=== PATIENT | male | born 1950 | race Caucasian/White ===

== ENCOUNTER 2020-05-20 12:18 | Observation (INO) | payer MEDICARE ==
--- NOTE | 2020-05-20 14:16 | EDM.PDOC ---
ED HPI GENERAL MEDICAL PROBLEM - General Chief Complaint: Lower Extremity Injury/Pain Stated Complaint: POSSIBLE INFECTION Time Seen by Provider: 05/20/20 13:23 Source of Information: Reports: Patient, Family, Old Records, RN Notes Reviewed History Limitations: Reports: No Limitations - History of Present Illness INITIAL COMMENTS - FREE TEXT/NARRATIVE: 7-year-old gentleman presents emergency department today concerned about an infection, he recently had been doing some work on his knees developed a bursa over the right knee head followed up with urgent care did some basic blood work at that time was unremarkable did see orthopedics fluid was drained culture performed culture demonstrates a staph aureus sensitivities will be completed tomorrow morning, was given 2 g Rocephin IM and currently on Augmentin - Related Data Allergies Allergy/AdvReac Type Severity Reaction Status Date / Time acetaminophen Allergy Severe Swelling Verified 05/20/20 13:46 Home Meds: Home Meds Amoxicillin/Potassium Clav [Augmentin 875-125 Tablet] 1 each PO BID 05/19/20 [History] FLUoxetine HCl [Prozac] 20 mg PO DAILY 05/19/20 [History] Naproxen Sodium [Aleve] 220 mg PO DAILY 05/19/20 [History] atorvaSTATin Calcium [Atorvastatin Calcium] 20 mg PO DAILY 05/19/20 [History] metFORMIN HCl [Metformin HCl] 2,000 mg PO DAILY 05/19/20 [History] traMADol [Ultram] 50 mg PO Q4H PRN #24 tab 05/19/20 [Rx] Past Medical History HEENT History: Reports: Impaired Vision Other Respiratory History: history of pleural effusion with chest tube. Musculoskeletal History: Reports: Other (See Below) Other Musculoskeletal History: right knee pain and swelling Other Neuro History: had a brain surgery in 1986 Endocrine/Metabolic History: Reports: Diabetes, Type II - Infectious Disease History Infectious Disease History: Reports: Chicken Pox - Past Surgical History HEENT Surgical History: Reports: Tonsillectomy Musculoskeletal Surgical History: Reports: Hip Replacement Other Musculoskeletal Surgeries/Procedures:: left total hip Social & Family History - Tobacco Use Smoking Status *Q: Former Smoker Years of Tobacco use: 15 Packs/Tins Daily: 1 Used Tobacco, but Quit: Yes Month/Year Tobacco Last Used: 1984 - Caffeine Use Caffeine Use: Reports: Coffee - Alcohol Use Days Per Week of Alcohol Use: 4 Number of Drinks Per Day: 3 Total Drinks Per Week: 12 Date of Last Drink: 05/19/20 Time of Last Drink: 21:00 - Recreational Drug Use Recreational Drug Use: No Review of Systems - Review of Systems Review Of Systems: See Below Constitutional: Denies: Fever Respiratory: Reports: No Symptoms Cardiovascular: Reports: No Symptoms Musculoskeletal: Reports: No Symptoms Skin: Reports: Pallor, Rash, Erythema ED EXAM, GENERAL - Physical Exam Exam: See Below Free Text/Narrative:: Examination of the right knee he does have an open wound inferior patella which is slightly draining there is erythema around the knee however this is with inside the margins of the original marking with the pen. He does have some edema in the knee that has spread down into the calf and foot as well as slightly up into the leg it is warm to the touch no appreciable tenderness to the touch Exam Limited By: No Limitations General Appearance: Alert, WD/WN, No Apparent Distress Course - Vital Signs Last Recorded V/S: Last Vital Signs Temp 93.4 F L 05/20/20 14:09 Pulse 68 05/20/20 14:09 Resp 14 05/20/20 14:09 BP 147/70 H 05/20/20 14:09 Pulse Ox 98 05/20/20 14:09 - Orders/Labs/Meds Labs: Laboratory Tests 05/20/20 05/20/20 05/20/20 Range/Units 14:21 14:21 14:21 WBC 10.1 (4.5-11.0) K/uL RBC 4.25 L (4.30-5.90) M/uL Hgb 12.7 (12.0-15.0) g/dL Hct 39.6 L (40.0-54.0) % MCV 93 (80-98) fL MCH 30 (27-31) pg MCHC 32 (32-36) % Plt Count 216 (150-400) K/uL Neut % (Auto) 71 H (36-66) % Lymph % (Auto) 14 L (24-44) % [place] % (Auto) 13 H (2-6) % Eos % (Auto) 2 (2-4) % Baso % (Auto) 0 (0-1) % ESR 43 H (0-20) mm/hr Sodium (140-148) mmol/L Potassium (3.6-5.2) mmol/L Chloride (100-108) mmol/L Carbon Dioxide (21-32) mmol/L Anion Gap (5.0-14.0) mmol/L BUN (7-18) mg/dL Creatinine (0.8-1.3) mg/dL Est Cr Clr Drug Dosing mL/min Estimated GFR (MDRD) (>60) Glucose (74-106) mg/dL Lactic Acid 2.8 H (0.4-2.0) mmol/L Calcium (8.5-10.1) mg/dL C-Reactive Protein 13.94 H (0.0-0.3) mg/dL 05/20/20 Range/Units 14:21 WBC (4.5-11.0) K/uL RBC (4.30-5.90) M/uL Hgb (12.0-15.0) g/dL Hct (40.0-54.0) % MCV (80-98) fL MCH (27-31) pg MCHC (32-36) % Plt Count (150-400) K/uL Neut % (Auto) (36-66) % Lymph % (Auto) (24-44) % [place] % (Auto) (2-6) % Eos % (Auto) (2-4) % Baso % (Auto) (0-1) % ESR (0-20) mm/hr Sodium 137 L (140-148) mmol/L Potassium 4.4 (3.6-5.2) mmol/L Chloride 100 (100-108) mmol/L Carbon Dioxide 28 (21-32) mmol/L Anion Gap 13.4 (5.0-14.0) mmol/L BUN 12 (7-18) mg/dL Creatinine 1.1 (0.8-1.3) mg/dL Est Cr Clr Drug Dosing 64.52 mL/min Estimated GFR (MDRD) > 60 (>60) Glucose 172 H (74-106) mg/dL Lactic Acid (0.4-2.0) mmol/L Calcium 9.0 (8.5-10.1) mg/dL C-Reactive Protein (0.0-0.3) mg/dL Departure - Departure Time of Disposition: 16:34 Disposition: Admitted As Inpatient 66 Condition: Fair Clinical Impression: Infection of knee - Discharge Information Referrals: PCP,None [Primary Care Provider] - Forms: ED Department Discharge Sepsis Event Note (ED) - Evaluation Sepsis Screening Result: No Definite Risk - Focused Exam Vital Signs: Vital Signs Temp Pulse Resp BP Pulse Ox 05/20/20 14:09 93.4 F L 68 14 147/70 H 98 05/20/20 13:28 93.3 F L 68 14 147/70 H 98 - Assessment/Plan Plan: Assessment Acuity = acute Site and laterality = cellulitis versus septic arthritis right knee Etiology = staph aureus Manifestations = erythema Location of injury = Home Lab values = sed rate elevated at 40 lactic acid elevated 2.8 CRP elevated 13.4 this is up from 0.82 days ago Plan Call discussed case with Dr. Kimball orthopedic surgeon [facility] at 1610 recommended IV antibiotics for coverage of MRSA with observation for 24 hours if improvement continue with medical management however if no improvement recommend incision and drainage by orthopedics. I did discuss options with the patient they would like to stay in [place] rather than transfer to [address]. I called discussed case with hospitalist on-call at 1430 he kindly agreed to come and evaluate the patient emergency department for admission This note was dictated using hiyalife voice recognition software please call with any questions on syntax or grammar.
--- NOTE | 2020-05-20 17:48 | PCM.HP.2 ---
H&P History of Present Illness - General Date of Service: 05/20/20 Admit Problem/Dx: Admission Diagnosis/Problem Admission Diagnosis/Problem Bursitis of knee Source of Information: Patient, Provider History Limitations: Reports: No Limitations - History of Present Illness Initial Comments - Free Text/Narative: CC: my knee is swollen HPI: Todd presents to the emergency room today with persistent right knee pain and increasing swelling. He reports that he has been crawling around on his knees doing trim work and developed a small abrasion on the right knee. He subsequently developed some achy pain and increasing swelling. This pain and swelling have progressed over the past week. Pain is currently achy and mild to moderate in nature. Leg feels better when it is elevated. Hurts when he is walking around. He has been using Aleve and tramadol. These medications do help some. Pain is getting worse. Swelling is getting worse and has extended to involve all of his lower leg. He was seen by orthopedics yesterday and some fluid was drained with concern for potentially infected bursitis. No organisms were seen on the Gram stain. He was started on Augmentin. Things are getting worse since that time. He did have one fever about 2-1/2 days ago but none since. No cough, shortness of breath, abdominal pain or diarrhea. Work-up in the emergency room revealed a white blood cell count at the upper limits of normal. CRP has increased since it was checked the other day. He has obvious swelling and warmth of the knee which extends proximally onto the thigh and distally all the way down to the foot. Most of the warmth and redness is centered around the anterior knee. - Related Data Allergies/Adverse Reactions: Allergies Allergy/AdvReac Type Severity Reaction Status Date / Time acetaminophen Allergy Severe Swelling Verified 05/20/20 13:46 Home Medications: Home Meds Amoxicillin/Potassium Clav [Augmentin 875-125 Tablet] 1 each PO BID 05/19/20 [History] FLUoxetine HCl [Prozac] 20 mg PO DAILY 05/19/20 [History] Naproxen Sodium [Aleve] 220 mg PO DAILY 05/19/20 [History] atorvaSTATin Calcium [Atorvastatin Calcium] 20 mg PO DAILY 05/19/20 [History] metFORMIN HCl [Metformin HCl] 2,000 mg PO DAILY 05/19/20 [History] traMADol [Ultram] 50 mg PO Q4H PRN #24 tab 05/19/20 [Rx] Past Medical History HEENT History: Reports: Impaired Vision Other Respiratory History: history of pleural effusion with chest tube. Musculoskeletal History: Reports: Other (See Below) Other Musculoskeletal History: right knee pain and swelling Other Neuro History: had a brain surgery in 1986 Endocrine/Metabolic History: Reports: Diabetes, Type II - Infectious Disease History Infectious Disease History: Reports: Chicken Pox - Past Surgical History HEENT Surgical History: Reports: Tonsillectomy Musculoskeletal Surgical History: Reports: Hip Replacement Other Musculoskeletal Surgeries/Procedures:: left total hip Social & Family History - Family History Endocrine/Metabolic: Reports: Diabetes, type II - Tobacco Use Smoking Status *Q: Former Smoker Years of Tobacco use: 15 Packs/Tins Daily: 1 Used Tobacco, but Quit: Yes Month/Year Tobacco Last Used: 1984 - Caffeine Use Caffeine Use: Reports: Coffee - Alcohol Use Days Per Week of Alcohol Use: 4 Number of Drinks Per Day: 3 Total Drinks Per Week: 12 Date of Last Drink: 05/19/20 Time of Last Drink: 21:00 - Recreational Drug Use Recreational Drug Use: No H&P Review of Systems - Review of Systems: Review Of Systems: See Below Free Text/Narrative: A complete 12 point review of systems was obtained. Pertinent positives and n egatives are noted in the history of present illness. All other systems were reviewed and were negative except as noted. Exam - Exam Exam: See Below - Vital Signs Vital Signs: Last Vital Signs Temp 34.1 C L 05/20/20 14:09 Pulse 68 05/20/20 14:09 Resp 14 05/20/20 14:09 BP 147/70 H 05/20/20 14:09 Pulse Ox 98 05/20/20 14:09 Weight: 89.4 kg - Exam Quality Assessment: No: Supplemental Oxygen General: Alert, Oriented, Cooperative. No: Mild Distress HEENT: Conjunctiva Clear, Mucosa Moist & [place] Neck: Supple, Trachea Midline Lungs: Clear to Auscultation, Normal Respiratory Effort Cardiovascular: Regular Rate, Regular Rhythm GI/Abdominal Exam: Soft, No Distention Extremities: Pedal Edema (Right leg from the foot all the way up to above the knee), Joint Swelling (Right knee), Increased Warmth (Right knee) Skin: Warm, Dry, Rash (Erythema over the anterior right knee extending proximally a couple of inches and distally a couple of inches) Neuro Extensive - Mental Status: Alert, Oriented x3, Nl Response to Commands Neuro Extensive - Motor, Sensory, Reflexes: No: Dysarthria, Abnormal Motor Psychiatric: Alert, Normal Affect - Patient Data Lab Results Last 24 hrs: Laboratory Results - last 24 hr 05/20/20 05/20/20 05/20/20 Range/Units 14:21 14:21 14:21 WBC 10.1 (4.5-11.0) K/uL RBC 4.25 L (4.30-5.90) M/uL Hgb 12.7 (12.0-15.0) g/dL Hct 39.6 L (40.0-54.0) % MCV 93 (80-98) fL MCH 30 (27-31) pg MCHC 32 (32-36) % Plt Count 216 (150-400) K/uL Neut % (Auto) 71 H (36-66) % Lymph % (Auto) 14 L (24-44) % [place] % (Auto) 13 H (2-6) % Eos % (Auto) 2 (2-4) % Baso % (Auto) 0 (0-1) % ESR 43 H (0-20) mm/hr Sodium (140-148) mmol/L Potassium (3.6-5.2) mmol/L Chloride (100-108) mmol/L Carbon Dioxide (21-32) mmol/L Anion Gap (5.0-14.0) mmol/L BUN (7-18) mg/dL Creatinine (0.8-1.3) mg/dL Est Cr Clr Drug Dosing mL/min Estimated GFR (MDRD) (>60) Glucose (74-106) mg/dL Lactic Acid 2.8 H (0.4-2.0) mmol/L Calcium (8.5-10.1) mg/dL C-Reactive Protein 13.94 H (0.0-0.3) mg/dL 05/20/20 Range/Units 14:21 WBC (4.5-11.0) K/uL RBC (4.30-5.90) M/uL Hgb (12.0-15.0) g/dL Hct (40.0-54.0) % MCV (80-98) fL MCH (27-31) pg MCHC (32-36) % Plt Count (150-400) K/uL Neut % (Auto) (36-66) % Lymph % (Auto) (24-44) % [place] % (Auto) (2-6) % Eos % (Auto) (2-4) % Baso % (Auto) (0-1) % ESR (0-20) mm/hr Sodium 137 L (140-148) mmol/L Potassium 4.4 (3.6-5.2) mmol/L Chloride 100 (100-108) mmol/L Carbon Dioxide 28 (21-32) mmol/L Anion Gap 13.4 (5.0-14.0) mmol/L BUN 12 (7-18) mg/dL Creatinine 1.1 (0.8-1.3) mg/dL Est Cr Clr Drug Dosing 64.52 mL/min Estimated GFR (MDRD) > 60 (>60) Glucose 172 H (74-106) mg/dL Lactic Acid (0.4-2.0) mmol/L Calcium 9.0 (8.5-10.1) mg/dL C-Reactive Protein (0.0-0.3) mg/dL Result Diagrams: 05/20/20 14:21 05/20/20 14:21 Sepsis Event Note - Evaluation Sepsis Screening Result: No Definite Risk - Focused Exam Vital Signs: Vital Signs Temp Pulse Resp BP Pulse Ox 05/20/20 14:09 34.1 C L 68 14 147/70 H 98 05/20/20 13:28 34.1 C L 68 14 147/70 H 98 Date Exam was Performed: 05/20/20 Time Exam was Performed: 18:08 *Q Meaningful Use (ADM) - VTE Risk Assess *Q Each Risk Factor Represents 1 Point: None Total Score 1 Point Risk Factors: 0 Each Risk Factor Represents 2 Points: Age 60 - 74 Years Total Score 2 Point Risk Factors: 2 Each Risk Factor Represents 3 Points: None Total Score 3 Point Risk Factors: 0 Each Risk Factor Represents 5 Points: None Total Score 5 Point Risk Factors: 0 Venous Thromboembolism Risk Factor Score *Q: 2 - Problem List (1) Septic prepatellar bursitis of right knee SNOMED Code(s): 28560723, 144193331 ICD Code: M71.161 - OTHER INFECTIVE BURSITIS, RIGHT KNEE Status: Acute Current Visit: Yes (2) Type 2 diabetes mellitus, controlled SNOMED Code(s): 68273730, 262861201 ICD Code: E11.9 - TYPE 2 DIABETES MELLITUS WITHOUT COMPLICATIONS Status: Chronic Current Visit: Yes Qualifiers: Diabetes mellitus extermination supervisor insulin use: without extermination supervisor use Diabetes mellitus complication status: without complication Qualified Code(s): E11.9 - Type 2 diabetes mellitus without complications Problem List Initiated/Reviewed/Updated: Yes Orders Last 24hrs: Active Orders 24 hr Category Date Time Status Patient Status Manage Transfer [TRANSFER] Routine ADT 05/20/20 17:41 Ordered Vancomycin 1.75 gm Med 05/20/20 18:00 Ordered Sodium Chloride 0.9% [Normal Saline] 250 ml IV ONETIME Resuscitation Status Routine Resus Stat 05/20/20 17:43 Ordered Medication Orders Vancomycin HCl 1.75 gm/ Sodium (Chloride) 250 mls @ 150 mls/hr IV ONETIME ONE Stop: 05/20/20 19:39 Assessment/Plan Comment:: ASSESSMENT AND PLAN - Septic bursitis of the right knee-did have aspiration of fluid from the bursa which is growing a staph species. Increasing pain and swelling despite outpatient antibiotic therapy with Augmentin. Lactic acid level is mildly elevated but there is no other evidence for sepsis at this time. Orthopedics was consulted and they recommended 24 hours of IV antibiotics and then reassess to see if a washout is needed. -Vancomycin -Follow-up cultures -Pain control -Ice pack -Elevate leg -Consider transfer for orthopedic evaluation if worsening or not getting better Type 2 diabetes mellitus-controlled by history. -Continue metformin Maintenance issues - - DVT prophylaxis -mechanical - GI prophylaxis -not indicated - Nutrition -diabetic - Wen catheter -not indicated CODE STATUS -full code Admission justification -this patient will be referred observation status for i nitiation of IV antibiotics and repeat examinations of the infected right knee Disposition -I would anticipate discharge home after the hospital stay Primary care physician -[place], [place] Kranthi Mtz M.D. - Mortality Measure Prognosis:: Good
[2020-05-20] MEDS ORDERED: LORazepam 2 MG/ML SDV IVPUSH PRN (18:33)
[2020-05-20] MEDS ORDERED: Magnesium Hydroxide 400 MG/5 ML Susp 30 ML Cup PO PRN (18:33)
[2020-05-20] MEDS ORDERED: traMADol 50 MG Tab PO PRN (18:33)
[2020-05-20] MEDS ORDERED: Ibuprofen 600 MG Tab PO PRN (18:33)
[2020-05-20] MEDS ORDERED: Ondansetron 4 MG Tab.DIS PO PRN (18:33)
[2020-05-20] MEDS ORDERED: Ondansetron 4 MG/2 ML SDV IV PRN (18:33)
[2020-05-20] MEDS: Sodium Chloride 0.9% 1,000 ML IV SCH (18:47)
[2020-05-20] MEDS: Lactobacillus Rhamnosus GG (Probiotic) Cap PO SCH (21:39)
[2020-05-21] MEDS: Sodium Chloride 0.9% 1,000 ML IV SCH (06:06)
[2020-05-21] MEDS: Lactobacillus Rhamnosus GG (Probiotic) Cap PO SCH ×2 (08:53→19:59)
[2020-05-21] MEDS: atorvaSTATin 20 MG Tab PO SCH (08:54)
[2020-05-21] MEDS: FLUoxetine 20 MG Cap PO SCH (08:54)
[2020-05-21] MEDS: metFORMIN 500 MG Tab PO SCH ×2 (08:54→17:45)
--- NOTE | 2020-05-21 11:09 | PCM.PN ---
- General Info Date of Service: 05/21/20 Subjective Update: No acute events overnight. No fevers. Pain and swelling are both better in the right knee. No nausea. Feeling well. Able to walk around without significant pain. Culture from a couple of days ago did return with MSSA. - Review of Systems General: Denies: Fever Musculoskeletal: Reports: Joint Swelling (right knee ) - Patient Data Vitals - Most Recent: Last Vital Signs Temp 35.8 C L 05/21/20 08:48 Pulse 69 05/21/20 08:48 Resp 16 05/21/20 08:48 BP 120/61 05/21/20 08:48 Pulse Ox 97 05/21/20 08:48 Weight - Most Recent: 89.4 kg Lab Results Last 24 Hours: Laboratory Results - last 24 hr 05/20/20 05/20/20 05/20/20 Range/Units 14:21 14:21 14:21 WBC 10.1 (4.5-11.0) K/uL RBC 4.25 L (4.30-5.90) M/uL Hgb 12.7 (12.0-15.0) g/dL Hct 39.6 L (40.0-54.0) % MCV 93 (80-98) fL MCH 30 (27-31) pg MCHC 32 (32-36) % Plt Count 216 (150-400) K/uL Neut % (Auto) 71 H (36-66) % Lymph % (Auto) 14 L (24-44) % [place] % (Auto) 13 H (2-6) % Eos % (Auto) 2 (2-4) % Baso % (Auto) 0 (0-1) % ESR 43 H (0-20) mm/hr Sodium (140-148) mmol/L Potassium (3.6-5.2) mmol/L Chloride (100-108) mmol/L Carbon Dioxide (21-32) mmol/L Anion Gap (5.0-14.0) mmol/L BUN (7-18) mg/dL Creatinine (0.8-1.3) mg/dL Est Cr Clr Drug Dosing mL/min Estimated GFR (MDRD) (>60) Glucose (74-106) mg/dL Lactic Acid 2.8 H (0.4-2.0) mmol/L Calcium (8.5-10.1) mg/dL C-Reactive Protein 13.94 H (0.0-0.3) mg/dL 05/20/20 05/21/20 05/21/20 Range/Units 14:21 04:05 05:11 WBC 7.9 (4.5-11.0) K/uL RBC 3.75 L (4.30-5.90) M/uL Hgb 11.1 L (12.0-15.0) g/dL Hct 34.8 L (40.0-54.0) % MCV 93 (80-98) fL MCH 30 (27-31) pg MCHC 32 (32-36) % Plt Count 218 (150-400) K/uL Neut % (Auto) (36-66) % Lymph % (Auto) (24-44) % [place] % (Auto) (2-6) % Eos % (Auto) (2-4) % Baso % (Auto) (0-1) % ESR (0-20) mm/hr Sodium 137 L (140-148) mmol/L Potassium 4.4 (3.6-5.2) mmol/L Chloride 100 (100-108) mmol/L Carbon Dioxide 28 (21-32) mmol/L Anion Gap 13.4 (5.0-14.0) mmol/L BUN 12 (7-18) mg/dL Creatinine 1.1 (0.8-1.3) mg/dL Est Cr Clr Drug Dosing 64.52 mL/min Estimated GFR (MDRD) > 60 (>60) Glucose 172 H (74-106) mg/dL Lactic Acid (0.4-2.0) mmol/L Calcium 9.0 (8.5-10.1) mg/dL C-Reactive Protein 9.06 H (0.0-0.3) mg/dL Med Orders - Current: Current Medications Atorvastatin Calcium (Lipitor) 20 mg PO DAILY [facility] Last Admin: 05/21/20 08:54 Dose: 20 mg Documented by: Fluoxetine HCl (Prozac) 20 mg PO DAILY [facility] Last Admin: 05/21/20 08:54 Dose: 20 mg Documented by: Sodium Chloride (Normal Saline) 1,000 mls @ 100 mls/hr IV ASDIRECTED [facility] Last Admin: 05/21/20 06:06 Dose: 100 mls/hr Documented by: Vancomycin HCl 1.25 gm/ Sodium (Chloride) 250 mls @ 150 mls/hr IV Q12H [facility] Last Admin: 05/21/20 08:53 Dose: 150 mls/hr Documented by: Ibuprofen (Motrin) 600 mg PO Q6H PRN PRN Reason: Pain/Fever Lactobacillus Rhamnosus (Culturelle) 1 cap PO BID [facility] Last Admin: 05/21/20 08:53 Dose: 1 cap Documented by: Lorazepam (Ativan) 0.5 mg IVPUSH Q4H PRN PRN Reason: Nausea/Vomiting Magnesium Hydroxide (Milk Of Magnesia) 30 ml PO Q12H PRN PRN Reason: Constipation [facility] Last Admin: 05/21/20 08:54 Dose: 1,000 mg Documented by: Ondansetron HCl (Zofran) 4 mg IV Q6H PRN PRN Reason: Nausea/Vomiting Ondansetron HCl (Zofran Odt) 4 mg PO Q6H PRN PRN Reason: Nausea able to take PO Senna/Docusate Sodium (Senna Plus) 1 tab PO BID PRN PRN Reason: Constipation Tramadol HCl (Ultram) 50 mg PO Q4H PRN PRN Reason: Pain (moderate 4-6) Discontinued Medications Vancomycin HCl 1.75 gm/ Sodium (Chloride) 250 mls @ 150 mls/hr IV ONETIME ONE Stop: 05/20/20 19:39 Last Admin: 05/20/20 19:49 Dose: 150 mls/hr Documented by: Vancomycin HCl 1.25 gm/ Sodium (Chloride) 250 mls @ 150 mls/hr IV Q12H [facility] Last Admin: 05/21/20 07:21 Dose: Not Given Documented by: - Exam Quality Assessment: No: Supplemental Oxygen General: Alert, Oriented, Cooperative, No Acute Distress Lungs: Normal Respiratory Effort GI/Abdominal Exam: Soft, No Distention Extremities: No Pedal Edema, Joint Swelling (right knee ), Increased Warmth (right knee ) Skin: Warm, Dry Psy/Mental Status: Alert, Normal Affect Sepsis Event Note - Evaluation Sepsis Screening Result: No Definite Risk - Focused Exam Vital Signs: Vital Signs Temp Pulse Resp BP Pulse Ox 05/21/20 08:48 35.8 C L 69 16 120/61 97 05/21/20 03:48 36.3 C 86 16 125/66 98 Date Exam was Performed: 05/21/20 Time Exam was Performed: 12:57 - Problem List & Annotations (1) Septic prepatellar bursitis of right knee SNOMED Code(s): 72420340, 869348535 Code(s): M71.161 - OTHER INFECTIVE BURSITIS, RIGHT KNEE Status: Acute Current Visit: Yes (2) Type 2 diabetes mellitus, controlled SNOMED Code(s): 90171478, 355684615 Code(s): E11.9 - TYPE 2 DIABETES MELLITUS WITHOUT COMPLICATIONS Status: Chronic Current Visit: Yes Qualifiers: Diabetes mellitus ferry terminal supervisor insulin use: without fdc use Diabetes mellitus complication status: without complication Qualified Code(s): E11.9 - Type 2 diabetes mellitus without complications - Problem List Review Problem List Initiated/Reviewed/Updated: Yes - My Orders Last 24 Hours: My Active Orders 05/20/20 Dinner Consistent Carbohydrate Diet [DIET] 05/20/20 17:43 Resuscitation Status Routine 05/20/20 18:33 Docusate Sodium/Sennosides [Senna Plus] 1 tab PO BID PRN Ibuprofen [Motrin] 600 mg PO Q6H PRN LORazepam [Ativan] 0.5 mg IVPUSH Q4H PRN Magnesium Hydroxide [Milk of Magnesia] 30 ml PO Q12H PRN Ondansetron [Zofran ODT] 4 mg PO Q6H PRN Ondansetron [Zofran] 4 mg IV Q6H PRN Sodium Chloride 0.9% [Normal Saline] 1,000 ml IV ASDIRECTED traMADol [Ultram] 50 mg PO Q4H PRN 05/20/20 18:33 Patient Status [ADT] Routine Antiembolic Devices [RC] .Routine Cooling Warming Measures [RC] ASDIRECTED Elevate Extremity [RC] CONTINUOUS Intake and Output [RC] QSHIFT Notify Provider Vital Signs [RC] ASDIRECTED Oxygen Therapy [RC] PRN Up With Assistance [RC] ASDIRECTED Vital Signs [RC] Q4H Antiembolic Hose [OM.PC] Routine Ice Pack [Ice Therapy] [OM.PC] Routine 05/20/20 21:00 Lactobacillus Rhamnosus GG [Culturelle] 1 cap PO BID 05/21/20 08:00 Vancomycin 1.25 gm Sodium Chloride 0.9% [Normal Saline] 250 ml IV Q12H metFORMIN [Glucophage] 1,000 mg PO BIDMEALS 05/21/20 09:00 FLUoxetine [PROzac] 20 mg PO DAILY atorvaSTATin [Lipitor] 20 mg PO DAILY 05/21/20 11:07 Convert IV to Saline Lock [OM.PC] Routine 05/21/20 20:00 ceFAZolin [Ancef] 1 gm Sodium Chloride 0.9% [Normal Saline] 50 ml IV Q8HR - Plan Plan:: ASSESSMENT AND PLAN - Septic bursitis of the right knee-fluid from the knee aspiration did grow out MSSA. Clinically he is improving with less pain and swelling. CRP is down. No fevers. -Cefazolin -Anticipate discharge home with cephalexin -Follow-up cultures -Pain control -Ice pack -Elevate leg -Consider transfer for orthopedic evaluation if worsening or not getting better Type 2 diabetes mellitus-controlled by history. -Continue metformin Maintenance issues - - DVT prophylaxis -mechanical - GI prophylaxis -not indicated - Nutrition -diabetic Disposition -I would anticipate discharge home after the hospital stay Primary care physician -[place], [place] Kranthi Mtz M.D.
[2020-05-21] MEDS: ceFAZolin 1 GM in Premix Bag 1 BAG IV SCH (19:59)
[2020-05-21] MEDS ORDERED: ceFAZolin 1 GM in Sodium Chloride 0.9% 50 ML IV SCH (20:00)
[2020-05-22] MEDS: ceFAZolin 1 GM in Premix Bag 1 BAG IV SCH (04:45)
[2020-05-22] MEDS: Lactobacillus Rhamnosus GG (Probiotic) Cap PO SCH (09:07)
[2020-05-22] MEDS: metFORMIN 500 MG Tab PO SCH (09:07)
[2020-05-22] MEDS: atorvaSTATin 20 MG Tab PO SCH (09:07)
[2020-05-22] MEDS: FLUoxetine 20 MG Cap PO SCH (09:08)
--- NOTE | 2020-05-22 11:14 | PCM.DCSUM1 ---
Discharge Summary - Hospital Course Brief History: 70-year-old male with history of diabetes who presented with increasing redness, pain and swelling of the right knee. He was admitted for management of presumed septic bursitis. Diagnosis: Stroke: No - Discharge Data Discharge Date: 05/22/20 Discharge Disposition: Home, Self-Care 01 Condition: Good - Referral to Home Health Primary Care Physician: PCP None - Discharge Diagnosis/Problem(s) (1) Septic prepatellar bursitis of right knee SNOMED Code(s): 91516406, 164563709 ICD Code: M71.161 - OTHER INFECTIVE BURSITIS, RIGHT KNEE Status: Acute (2) Type 2 diabetes mellitus, controlled SNOMED Code(s): 56698131, 680444834 ICD Code: E11.9 - TYPE 2 DIABETES MELLITUS WITHOUT COMPLICATIONS Status: Chronic Qualifiers: Diabetes mellitus skilled nursing insulin use: without terminal carman use Diabetes mellitus complication status: without complication Qualified Code(s): E11.9 - Type 2 diabetes mellitus without complications - Patient Summary/Data Hospital Course: Todd presented to the emergency room with increasing pain, swelling and warmth of the right knee. He had an aspiration the day before with concern that he may have septic bursitis. No organisms were seen and he was started on Augmentin. Despite this he was getting worse. Work-up in the emergency room revealed a mild elevation of his white blood cells. Cultures from the day before were growing probable staph aureus but identification was still pending. Orthopedics were consulted and they recommended IV antibiotics and then transfer only if things were getting worse. They did not feel he needed an urgent washou t. We started him on vancomycin as well as some IV fluids overnight. By the next morning his knee was feeling better. The swelling was down but still remained fairly significant. His pain was improved. His CRP was trending down. He did not have any fevers. His culture did return with MSSA. We transition antibiotics to cefazolin at this point. Over the next 24 hours we saw additional improvement in the pain and swelling of the knee. The redness and warmth have decreased significantly. His range of motion has increased. He does have some mild serosanguineous drainage from the site where the aspiration was completed but otherwise the knee looks pretty good. He feels comfortable going home at this point. I am going to send him home with cephalexin for 8 more days. He does have orthopedic follow-up in 4 days time. - Patient Instructions Diet: Diabetic Diet Activity: As Tolerated Showering/Bathing: May Shower, No Tub Bathing/Swimming Notify Provider of: Fever, Increased Pain, Drainage (If increasing or purulent ) Other/Special Instructions: 1. You were in the hospital for management of septic bursitis of the right knee. Cultures obtained in the orthopedic clinic did grow out methicillin sensitive staph aureus. Your condition has been improving with antibiotic therapy. I do recommend ongoing antibiotic therapy. Please take cephalexin (Keflex) 500 mg 3 times daily for 24 more doses. Your first dose outside of the hospital will be due this afternoon. You should keep the area of open skin on the right knee clean and dry. I would recommend no swimming or tub bathing and less you have the area covered with a waterproof bandage. 2. Continue your other home medications as previously prescribed. 3. Follow up with Dr Abdullahi Mireles as scheduled on unless symptoms worsen in the meantime. Please seek immediate medical attention if you have fever greater than 101, persistent shaking chills or if you have quickly increasing swelling or redness of the right knee. - Discharge Plan *PRESCRIPTION DRUG MONITORING PROGRAM REVIEWED*: Not Applicable *COPY OF PRESCRIPTION DRUG MONITORING REPORT IN PATIENT JORDY: Not Applicable Prescriptions/Med Rec: cephALEXin [Keflex] 500 mg PO TID #24 cap Home Medications: Home Meds Amoxicillin/Potassium Clav [Augmentin 875-125 Tablet] 1 each PO BID 05/19/20 [History] FLUoxetine HCl [Prozac] 20 mg PO DAILY 05/19/20 [History] Naproxen Sodium [Aleve] 220 mg PO DAILY 05/19/20 [History] atorvaSTATin Calcium [Atorvastatin Calcium] 20 mg PO DAILY 05/19/20 [History] metFORMIN HCl [Metformin HCl] 2,000 mg PO DAILY 05/19/20 [History] traMADol [Ultram] 50 mg PO Q4H PRN #24 tab 05/19/20 [Rx] cephALEXin [Keflex] 500 mg PO TID #24 cap 05/22/20 [Rx] Oxygen Therapy Mode: Room Air Patient Handouts: Bursitis, Cephalexin oral suspension Referrals: Abdullahi Mireles MD [Physician] - (f/u as scheduled on ) - Discharge Summary/Plan Comment DC Time >30 min.: No - Patient Data Vitals - Most Recent: Last Vital Signs Temp 36.7 C 05/22/20 07:31 Pulse 55 L 05/22/20 07:31 Resp 16 05/22/20 07:31 BP 112/53 L 05/22/20 07:31 Pulse Ox 98 05/22/20 07:31 Weight - Most Recent: 89.4 kg I&O - Last 24 hours: Intake & Output 05/21/20 05/22/20 05/22/20 22:59 06:59 14:59 Intake Total 290 Balance 290 Med Orders - Current: Current Medications Atorvastatin Calcium (Lipitor) 20 mg PO DAILY [facility] Last Admin: 05/22/20 09:07 Dose: 20 mg Documented by: Fluoxetine HCl (Prozac) 20 mg PO DAILY [facility] Last Admin: 05/22/20 09:08 Dose: 20 mg Documented by: Cefazolin Sodium/Dextrose 1 gm (/ Premix) 50 mls @ 100 mls/hr IV Q8H [facility] Last Admin: 05/22/20 04:45 Dose: 100 mls/hr Documented by: Ibuprofen (Motrin) 600 mg PO Q6H PRN PRN Reason: Pain/Fever Lactobacillus Rhamnosus (Culturelle) 1 cap PO BID [facility] Last Admin: 05/22/20 09:07 Dose: 1 cap Documented by: Lorazepam (Ativan) 0.5 mg IVPUSH Q4H PRN PRN Reason: Nausea/Vomiting Magnesium Hydroxide (Milk Of Magnesia) 30 ml PO Q12H PRN PRN Reason: Constipation Metformin HCl (Glucophage) 1,000 mg PO BIDMEALS [facility] Last Admin: 05/22/20 09:07 Dose: 1,000 mg Documented by: Ondansetron HCl (Zofran) 4 mg IV Q6H PRN PRN Reason: Nausea/Vomiting Ondansetron HCl (Zofran Odt) 4 mg PO Q6H PRN PRN Reason: Nausea able to take PO Senna/Docusate Sodium (Senna Plus) 1 tab PO BID PRN PRN Reason: Constipation Tramadol HCl (Ultram) 50 mg PO Q4H PRN PRN Reason: Pain (moderate 4-6) Discontinued Medications Vancomycin HCl 1.75 gm/ Sodium (Chloride) 250 mls @ 150 mls/hr IV ONETIME ONE Stop: 05/20/20 19:39 Last Admin: 05/20/20 19:49 Dose: 150 mls/hr Documented by: Sodium Chloride (Normal Saline) 1,000 mls @ 100 mls/hr IV ASDIRECTED [facility] Last Admin: 05/21/20 06:06 Dose: 100 mls/hr Documented by: Vancomycin HCl 1.25 gm/ Sodium (Chloride) 250 mls @ 150 mls/hr IV Q12H [facility] Last Admin: 05/21/20 07:21 Dose: Not Given Documented by: Vancomycin HCl 1.25 gm/ Sodium (Chloride) 250 mls @ 150 mls/hr IV Q12H [facility] Last Admin: 05/21/20 08:53 Dose: 150 mls/hr Documented by:
== END 2020-05-22 12:01 | disposition home or self-care (01) ==
LOC: JP.ED 12:18 → JP.MS 17:41 → INTOOBSV 17:41
PROVIDERS: ADMIT Internal Medicine; ATTEND Internal Medicine
DX: M00.061 Staphylococcal arthritis, right knee (principal); B95.61 Methicillin susceptible Staphylococcus aureus infection as the cause of diseases classified elsewhere; H54.7 Unspecified visual loss; E11.9 Type 2 diabetes mellitus without complications; Z96.643 Presence of artificial hip joint, bilateral; Z87.891 Personal history of nicotine dependence; Z88.6 Allergy status to analgesic agent; Z79.899 Other long term (current) drug therapy
CPT/HCPCS: 36415; 80048; 83605; 85025; 85027; 85651; 86140; 99284; A9270; J0690; J3370; J7030; J7050; 96361; 96365; 96366; 96367; 96376; G0378